=== PATIENT | male | born 1965 | race Caucasian/White ===

== ENCOUNTER 2023-08-06 21:57 | Emergency (ER) | payer BC ==
[2023-08-06] MEDS ORDERED: Ketorolac 30 MG/ML SDV IVPUSH ONE (22:05)
[2023-08-06] MEDS ORDERED: Ondansetron 4 MG/2 ML SDV IVPUSH ONE (22:05)
[2023-08-06] MEDS ORDERED: Morphine 4 MG/ML Syringe IVPUSH ONE (22:05)
[2023-08-06] MEDS ORDERED: Sodium Chloride 0.9% 1,000 ML IV ONE (22:08)
[2023-08-06 22:11] LABS: BASOPHILS ABSOLUTE AUTO 0.09 K/uL (0.00-0.20); BASOPHILS PERCENT AUTO 1.2 % (0.0-1.0); EOSINOPHILS ABSOLUTE AUTO 0.14 K/uL (0.00-0.45); EOSINOPHILS PERCENT AUTO 1.8 % (0.0-6.0); HEMATOCRIT 44.2 % (42.0-52.0); HEMOGLOBIN 16.1 g/dL (14.0-18.0); IMMATURE GRAN ABSOLUTE AUTO 0.02 K/uL (0.00-0.05); IMMATURE GRAN PERCENT AUTO 0.3 % (0.0-0.4); LYMPHOCYTES ABSOLUTE AUTO 1.29 K/uL (1.00-4.80); LYMPHOCYTES PERCENT AUTO 16.6 % (24.0-44.0); MEAN CORPUSCULAR HEMOGLOBIN 29.7 pg (28.0-32.0); MEAN CORPUSCULAR HGB CONC 36.4 g/dL (32.0-36.0); MEAN CORPUSCULAR VOLUME 81.4 fL (83.0-99.0); MONOCYTES PERCENT AUTO 7.7 % (0.0-8.0); NEUTROPHILS ABSOLUTE AUTO 5.65 K/uL (1.80-7.70); NEUTROPHILS PERCENT AUTO 72.4 % (41.0-71.0); PLATELET COUNT,PLT 349 K/uL (150-400); RED BLOOD CELL COUNT 5.43 M/uL (4.52-5.90); WHITE BLOOD CELL COUNT,WBC 7.79 K/uL (3.9-11.3)
[2023-08-06 22:34] LABS: A/G RATIO 1.1 (0.9-1.6); ALBUMIN 4.1 g/dL (3.4-5.0); BILIRUBIN TOTAL 0.5 mg/dL (0.2-1.0); CALCIUM 8.9 mg/dL (8.5-10.1); CARBON DIOXIDE,CO2 24.7 mmol/L (21.0-32.0); CREATININE 1.3 mg/dL (0.8-1.3); EST CRCL DRUG DOSING (CG) 59.19 mL/min; PROTEIN TOTAL,TP 7.9 g/dL (6.4-8.2)
[2023-08-06] MEDS ORDERED: Iopamidol 755 MG/ML 500 ML Multipack Bottle IVPUSH STA (23:20)
[2023-08-07 00:06] LABS: BILIRUBIN,URINE NEGATIVE (NEGATIVE); COLOR,URINE YELLOW; GLUCOSE,URINE NEGATIVE (NEGATIVE); KETONES,URINE NEGATIVE (NEGATIVE); LEUKOCYTE ESTERASE,URINE NEGATIVE (NEGATIVE); NITRITE,URINE NEGATIVE (NEGATIVE); OCCULT BLOOD,URINE LARGE (NEGATIVE); PROTEIN,URINE NEGATIVE (NEGATIVE); UROBILINOGEN,URINE 0.2 EU/dL (<2.0)
[2023-08-07 00:22] LABS: APPEARANCE,URINE HAZY
[2023-08-07 00:23] LABS: BACTERIA,URINE RARE (NEGATIVE); EPITHELIAL CELLS,URINE OCCASIONAL (NONE-FEW); WBC,URINE 0-1 (0-5/HPF)
[2023-08-07] MEDS ORDERED: oxyCODONE 5 MG Tab PO ONE (00:28)
== END 2023-08-07 00:40 | disposition home or self-care (01) ==
LOC: MW.ED 21:57
DX: N13.2 Hydronephrosis with renal and ureteral calculous obstruction (principal)
CPT/HCPCS: 36415; 74177; 80053; 81001; 83690; 84484; 85025; 93005; 96361; 96374; 96375; 99284; A9270; J2270; J2405; J7030; Q9967; 93010